=== PATIENT | male | born 1930 | race Caucasian/White ===

== ENCOUNTER 2017-05-11 13:07 | Outpatient (CLI) | payer MEDICARE ==
--- NOTE | 2017-05-11 16:19 | MRI ---
MRI OF THE PELVIS WITH AND WITHOUT IV CONTRAST 05/10/17 INDICATION: History of rectal cancer; initial staging exam. FINDINGS: There is an irregular intermediate to high T2 circumferential soft tissue mass involving the rectum o riginating at the high rectum, just distal to the rectosigmoid anastomosis on image 7 of series 3. Th e lesion then extends caudad 7.3 cm distally to terminate approximately 5.4 cm from the level of the anal verge. The tumor does appear to terminate prior to the level of the puborectalis. The lesion is circumferential with multifocal regions of disruption beyond the muscularis propria within the mesor ectal fat. One of the more prominent extensions into the mesorectal fat is seen on image 13 of series 3 and on image 12 of series 3. No pathologically enlarged perirectal, presacral internal iliac lymph nodes are present. There is postsurgical change of a total prostatectomy. There are a few mildly pr ominent inguinal lymph nodes bilaterally, largest seen on the left measuring up to 1.0 cm in size on image 29 of series 3. There is scattered degenerative change at the SI joints of both hips. No defini te bone marrow signal abnormality is seen involving the pelvis. IMPRESSION: 1. 7.3 cm circumferential rectal mass with T3 extension into the surrounding mesorectal fat. The shortest distance of the lesion to the mesorectal fascia is seen anteriorly within the upper rectum on image 12 of series 3 measuring 2 mm. 2. The distal extent of the tumor terminates approximately 5.4 cm from the level of the anal ly ge and approximately 3.8 cm from the level of the anal sphincter. There are multifocal regions of the lesion extending into the mesorectal fat, predominantly within the mid to upper rectum. 3. No abnormal perirectal or mesorectal lymph nodes are grossly evident. No overt extra mesorect al lymphadenopathy is evident. 4. Postsurgical changes of a prior prostatectomy. POS: TPC
== END 2017-05-11 13:08 | disposition home or self-care (01) ==
LOC: TBSIIMAG 13:07
PROVIDERS: ATTEND Radiology Radiation Oncology
DX: C20 Malignant neoplasm of rectum (principal); Z90.79 Acquired absence of other genital organ(s)
CPT/HCPCS: 72197

== ENCOUNTER 2017-05-14 08:30 | Outpatient (CLI) | payer MEDICARE ==
--- NOTE | 2017-05-16 12:26 | PET ---
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 Exam requested for initial staging. Rectal bleeding. Weight loss. TECHNIQUE: PET scanning with CT attenuation correction was performed from the shanthi of the brain through the proxi mal thighs following the intravenous administration of 15.7 mCi F18-FDG in the right antecubital siomara a. Imaging was performed after an uptake interval of 56 minutes. CORRELATION: MRI pelvis dated 05/11/17. FINDINGS: There is intense FDG localization in the region of the rectal mass with a SUV of 29. No zaria hypermetabolism is seen in the pelvis, inguinal regions, abdomen, chest, axilla, or neck. Focally increased nodular uptake is seen in the adrenal glands on either side with SUVs of 7.1 on the right and 3.7 on the left. No hypermetabolic pulmonary nodules, liver, or skeletal lesions are seen. The CT scan used for attenuation correction demonstrates no evidence of pleural effusions or ascites. 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 POS: NAUN
== END 2017-05-14 08:31 | disposition home or self-care (01) ==
LOC: PET 08:30
PROVIDERS: ATTEND Internal Medicine Hematology & Oncology
DX: C20 Malignant neoplasm of rectum (principal); C79.71 Secondary malignant neoplasm of right adrenal gland; C79.72 Secondary malignant neoplasm of left adrenal gland
CPT/HCPCS: 78815; A9552

== ENCOUNTER 2017-06-28 18:43 | Inpatient (IN) | payer MEDICARE ==
[2017-06-28] MEDS ORDERED: Ondansetron ODT 4 MG TAB SL PRN (22:43)
[2017-06-28] MEDS ORDERED: Acetaminophen 325 MG TAB PO PRN (22:43)
[2017-06-28] MEDS ORDERED: Ondansetron HCl/PF 4 MG/2 ML Vial IVP PRN (22:43)
[2017-06-28 23:05] VITALS: BMI 24.5
[2017-06-28] MEDS ORDERED: Sodium Chloride 0.9% 1,000 ML IV SCH (23:15)
--- NOTE | 2017-06-29 00:29 | HP ---
PRIMARY CARE PHYSICIAN: Joe Mchugh M.D. ONCOLOGIST: Neda Lubin M.D. CHIEF COMPLAINT: Rectal pain. HISTORY OF PRESENT ILLNESS: This is an 87-year-old male with a history of rectal cancer diagnosed ap proximately 3 months ago known prostate cancer who presents with a chief complaint of rectal pain. Steve villalpando has been receiving outpatient oncologic treatments which he states typically caused some pain, but not to this degree. The patient states he is currently on his third week of radiation and chemo therapy. The patient also states that he fell earlier today. REVIEW OF SYSTEMS: General: No fevers, no chills, no significant weight change in the last 2 weeks. Gastrointestinal: No nausea, no vomiting, no abdominal pain, rectal pain as per above described as previously sharp and burning. At the time of my evaluation, the patient states that it is currently resolved. He has had some associated bleeding as well. Genitourinary: Denies any dysuria, change in urinary frequency, coloration or quantity. HEENT: Denies any blurred vision, difficulty swallowing. Cardiovascular: Denies any chest pain, ch est pressure, left-sided arm numbness or tingling or diaphoresis. Respiratory: Denies any shortness of breath, dyspnea with exertion, cough or other recent upper respiratory infectious complaints. Mu sculoskeletal: Denies any new myalgias or arthralgias. He did have a fall earlier today. Denies an y loss of consciousness. Remainder of review of systems is otherwise negative. PAST MEDICAL HISTORY: As per HPI, inclusive of, 1. Prostate cancer. 2. Rectal cancer diagnosed 3 months ago, currently on week 3 of radiation and chemotherapy. 3. Status post CABG x4 vessel bypass approximately 20 years ago. HOME MEDICATIONS: Please see the EMR for full details. ALLERGIES: The patient denies any recent change in the last 2 weeks. FAMILY HISTORY: Negative for any known family history of rectal cancer, GI cancer, recurrent rectal pain. SOCIAL HISTORY: The patient denies any alcohol, tobacco, drug use. The patient endorses being full code at this point in time. PHYSICAL EXAMINATION: VITAL SIGNS: Blood pressure 124/43, pulse is 97, respirations 18, satting 98% on room air. GENERAL: The patient is awake, alert, conversant, lying in the hospital bed in no acute distress. R easonable historian, slightly hard of hearing. HEENT: Moist mucous membranes. Equal ocular motions are intact. Normocephalic, atraumatic. RESPIRATORY: Reasonable air movement. No wheezes, rales or rhonchi. Clear to auscultation otherwis e. CARDIOVASCULAR: S1, S2. No murmurs, rubs or gallops. Pulses 2+ bilateral upper extremity, no pitti ng pedal edema. ABDOMEN: Positive bowel sounds, soft, nontender to palpation. MUSCULOSKELETAL: Able to self-reposition in the bed without difficulty or assistance. GENITOURINARY: Rectal examination deferred at this point in time. IMAGING: CBC: WBC 16.2, hemoglobin 10.2, hematocrit 30.9, platelets 262, neutrophils 90%, bands 16% . PT 19.5, INR 1.6. CMP: Sodium 133, potassium 4.7, chloride 100, bicarbonate 21, BUN 56, creatini ne 2.34, glucose 158. Lactic acid 1.7, calcium 9.3, phosphorus 2.9, total bilirubin 0.9, direct bili rai 0.3, AST 31, ALT 16, alkaline phosphatase 96. BNP 128. TSH 1.7. UA significant for 100 mg pe r deciliter, small blood, small leukocyte esterase, 21-50 WBCs, 3+ urine bacteria. ASSESSMENT AND PLAN: An 87-year-old male with history of rectal cancer who presented with chief comp laint of rectal pain. Patient was also found to have a urinary tract infection currently. 1. Rectal pain. Symptomatic management, pain control as needed. The patient states this is current ly improved. 2. Concern for urinary tract infection along with leukocytosis and left shift on serologies. The pa reenant has been started on empiric ceftriaxone. Obtain a urine culture and followup. If patient has a fever, we would recommend obtaining blood cultures as well. Patient has history of straight cathin g, continue this as needed. 3. Concern for acute kidney injury. The patient has received several liters of IV fluid in the [facility] Department, we will continue with IV hydration and close monitoring of intake and output. 4. History of hypertension, continue home regimen as tolerated. 5. Admit to the Oncology Service. Patient is FULL CODE.
[2017-06-29] MEDS ORDERED: CEFTRIAXONE ROCEPHIN SLOW IVP SCH (04:00)
[2017-06-29 06:03] LABS: Band 38 % (5-11); Eosinophils 2 % (0-10); Hemoglobin 9.7 g/dL (14.0-18.0); Lymphocytes 4 % (21-51); MDiff Complete? YES; Mean Corpuscular Hemoglobin 33.6 pg (27.0-31.0); Mean Platelet Volume 5.9 fL (7.4-10.4); Monocytes 3 % (0-10); Neutrophil 53 % (42-75); PLT Morphology Comment Appears Adequate; Platelet Count 214 thou/uL (130-400); RBC Distribution Width 16.3 % (11.5-14.5); Red Blood Cell (RBC) Count 2.87 mill/uL (4.70-6.10); White Blood Cell (WBC) Count 12.3 thou/uL (4.8-10.8)
[2017-06-29 06:30] LABS: Calcium 8.5 mg/dL (7.8-10.44); Chloride 108 mmol/L (98-107); Phosphorus 3.6 mg/dL (2.3-4.7); Potassium 4.4 mmol/L (3.5-5.1); Sodium 134 mmol/L (136-145)
[2017-06-29 06:45] LABS: Albumin 2.4 g/dL (3.4-4.8)
[2017-06-29 06:47] LABS: Glucose 106 mg/dL (83-110)
[2017-06-29 06:49] LABS: Anion Gap 20 mmol/L (10-20); Carbon Dioxide 12 mmol/L (23-31)
[2017-06-29 06:51] LABS: BUN (Urea Nitrogen) 55 mg/dL (8.4-25.7); BUN/Creatinine Ratio 26.96; Calc. Creatinine Clearance 28 mL/min (70-130); Estimated GFR-MDRD 31
[2017-06-29] MEDS: Heparin 5,000 UNITS/ML VIAL SC SCH ×3 (08:25→20:46)
[2017-06-29] MEDS: Metoprolol Tartrate 25 MG TAB PO SCH ×2 (08:25→20:47)
[2017-06-29] MEDS: cefTRIAXone\\ROCEPHIN 1 GM in Syringe 10 ML SLOW IVP SCH (08:37)
[2017-06-29] MEDS: Amlodipine 10 MG TAB PO SCH (08:38)
[2017-06-29] MEDS ORDERED: FLU VACC TS2017-18 (>65YR) 0.5 ML SYRINGE IM ONE (09:00)
--- NOTE | 2017-06-29 17:31 | PDOC.PN ---
- Subjective Encounter Start Date: 06/29/17 Encounter Start Time: 17:25 Subjective: f/u for rectal pain and UTI in context of rectal adenocarcinoma and -: intermittent bladder catheterizations. Currently on Rocephin. Overall feels -: better. - Objective Resuscitation Status: Resuscitation Status FULL:Full Resuscitation MAR Reviewed: Yes Vital Signs & Weight: Vital Signs (12 hours) Temp Pulse Resp BP Pulse Ox 06/29/17 15:30 98.4 F 87 18 136/56 L 98 06/29/17 12:00 97.9 F 77 20 147/67 H 99 06/29/17 08:38 78 06/29/17 08:00 97.4 F L 78 18 06/29/17 07:00 97.4 F L 78 18 127/82 99 Weight Weight 166 lb 0.129 oz I&O: 06/28/17 06/29/17 06/30/17 06:59 06:59 06:59 Intake Total 60 300 Output Total 1975 Balance 60 -1675 Result Diagrams: 06/29/17 05:35 06/29/17 05:35 Additional Labs: Microbiology 06/28/17 15:25 Stool - Pending Stool Occult Blood (GUILLERMO) - Final 06/28/17 16:38 Urine Straight Catheter Urine Culture - Preliminary Presumptive Escherichia coli 06/28/17 15:35 Venous blood - Right Arm Blood Culture - Preliminary Specimen has been received and culture in progress. No Growth to date. Laboratory Tests 06/27/17 06/28/17 08:00 15:35 Creatinine 1.81 H 2.34 H Radiology Reviewed by me: Yes (PCXR - negative) Phys Exam - Physical Examination Constitutional: NAD smiling, alert, responsive HEENT: PERRLA, oral pharynx no lesions Neck: no JVD, supple Respiratory: no wheezing, clear to auscultation bilateral Cardiovascular: RRR Gastrointestinal: soft, non-tender, no distention, positive bowel sounds Musculoskeletal: no edema, pulses present Neurological: normal sensation, moves all 4 limbs Skin: normal turgor, cap refill <2 seconds Dx/Plan (1) E. coli UTI (urinary tract infection) Code(s): N39.0 - URINARY TRACT INFECTION, SITE NOT SPECIFIED; B96.20 - UNSP ESCHERICHIA COLI THE CAUSE OF DISEASES CLASSD ELSWHR Status: Acute Comment: Continue Rocephin 1gm IV q24h, await final cx sensitivities (2) Rectal pain Code(s): K62.89 - OTHER SPECIFIED DISEASES OF ANUS AND RECTUM Status: Acute Comment: Morphine Sulfate 2mg IV q4h prn, Gabapentin 300mg TID (3) Rectal adenocarcinoma Code(s): C20 - MALIGNANT NEOPLASM OF RECTUM Status: Chronic (4) NAKUL (acute kidney injury) Code(s): N17.9 - ACUTE KIDNEY FAILURE, UNSPECIFIED Status: Acute Comment: Improved, avoid nephrotoxic meds and contrast media, NS at 75ml/h (5) CKD (chronic kidney disease), stage III Code(s): N18.3 - CHRONIC KIDNEY DISEASE, STAGE 3 (MODERATE) Status: Acute (6) Macrocytic anemia Code(s): D53.9 - NUTRITIONAL ANEMIA, UNSPECIFIED Status: Chronic Comment: Stable, no evidence of active blood loss, repeat CBC in am - Plan continue antibiotics, child protective services social worker, out of bed/ambulate, DVT proph w/SCDs Stable overall -: Continue Rocephin 1gm IV q24h -: Continue pain control with Morphine Sulfate and Gabapentin -: IV NS 75ml/h -: AM lab: BMP, CBC * Code Status: DNR confirmed
[2017-06-29] MEDS ORDERED: CAPECITABINE 500 MG PO SCH (17:45)
[2017-06-29] MEDS: Sodium Chloride 0.9% 1,000 ML IV SCH (19:44)
[2017-06-29] MEDS: Gabapentin 300 MG CAP PO SCH (20:47)
--- NOTE | 2017-06-30 01:57 | CON ---
DATE OF CONSULTATION: 06/29/2017 REASON FOR CONSULTATION: Rectal adenocarcinoma. HISTORY OF PRESENT ILLNESS: Mr. Frank is an 87-year-old gentleman who is undergoing treatment with c hemoradiation for stage IV rectal adenocarcinoma. He is getting radiation with Xeloda. He presented to the emergency room yesterday with difficulty urinating, rectal pain and falls. He was noted to h ave a urinary tract infection. Culture is positive for E. coli. He also had elevated creatinine on admission likely secondary to dehydration. He has received IV antibiotics and fluids. The patient h as undergone approximately 19 of the 28 days of radiation. There have been some social issues. Arpita mahmood was living with his daughter, but then moved back home again where he has been marginally caring for himself in fact Adult Protective Services has seen the patient in his setting and he is involved in his case. Currently, the patient denies any discomfort, no abdominal pain, chest pain or shortnes s of breath. History was obtained from the patient and his multiple daughters at bedside. Patient h as a history of self-catheterization over the past year for urinary retention. PAST MEDICAL HISTORY: 1. 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 2. History of prostate cancer. 3. High blood pressure. 4. Coronary artery disease. 5. High cholesterol. 6. History of stroke. 7. History of liver disease. PAST SURGICAL HISTORY: 1. Prostatectomy. 2. CABG. ALLERGIES: No known drug allergies. HOME MEDICATIONS: 1. Amlodipine 10 mg daily. 2. Benazepril 20 mg daily. 3. Gabapentin 300 mg t.i.d. 4. Hydrochlorothiazide 20 mg daily. 5. Metoprolol tartrate 25 mg 1/2 tab daily. 6. Xeloda 500 mg 3 tabs b.i.d. with radiation. FAMILY HISTORY: Father had prostate cancer. Brother has a pancreatic cancer. SOCIAL HISTORY: , has 7 children. No alcohol, tobacco or illicit drug use. REVIEW OF SYSTEMS: Negative except for noted in HPI. PHYSICAL EXAMINATION: VITAL SIGNS: Temperature is 97.9, pulse is 77, respiratory rate 20, BP is 147/67. He is 99% on room air. GENERAL: This is a well-developed, well-nourished male in no acute distress. HEENT: Normocephalic, atraumatic. Pupils are equal and reactive to light. NECK: Supple. CARDIOVASCULAR: Regular rate and rhythm. LUNGS: Clear. ABDOMEN: Soft, nontender, bowel sounds are positive. EXTREMITIES: There is no clubbing, cyanosis or edema. SKIN: There is no rash. Perineum, no breakdown from radiation. HEMATOLOGICAL: There is no petechia or purpura. NEUROLOGIC: The patient is nonfocal. PSYCHIATRIC: He is alert and oriented and appropriate. PERTINENT LABORATORY AND X-RAYS: Current WBCs are 12.3, hemoglobin 9.7, hematocrit 29.2, platelet co unt 214,000, 53% neutrophils, 38% bands, 4% lymphocytes. PT is 19.5, INR is 1.6, PTT is 36.2. Sodiu m is 134, potassium 4.4, chloride 108, CO2 is 12, BUN is 55, creatinine 2.04. Lactic acid is 1.7, ca lcium is 8.5, phosphorus 3.6, total bilirubin is 0.9, AST is 31, ALT is 16, alkaline phosphatase is 9 6. Serum total protein is 6.5, albumin 3.1, globulin 3.4. Urine showed 3+ bacteria, positive for E. coli. IMPRESSION: 1. Stage IV rectal adenocarcinoma, on chemo and radiation. 2. Escherichia coli urinary tract infection. 3. Acute kidney injury likely secondary to dehydration. DISCUSSION: The patient is being treated for his UTI with IV antibiotics. He has received IV fluids with improvement in his creatinine. Discussion with the family and the patient, he would like to st op chemoradiation at this time and have a chance to recover. He would like to go to a rehab facility to see if they can increase his strength. I will put in a watch case polisher consult for rehab evaluation and will also put in palliative care consultation for advanced directives. The patient may transiti on to hospice after rehabilitation stay or he can resume chemoradiation at that time. This was all d iscussed with both the patient and his family. They are in agreement with the plan. Thank you for the consult.
[2017-06-30 06:05] LABS: Anion Gap 14 mmol/L (10-20); BUN (Urea Nitrogen) 40 mg/dL (8.4-25.7); Calc. Creatinine Clearance 36 mL/min (70-130); Calcium 8.4 mg/dL (7.8-10.44); Carbon Dioxide 17 mmol/L (23-31); Chloride 108 mmol/L (98-107); Estimated GFR-MDRD 43; Glucose 97 mg/dL (83-110); Potassium 3.6 mmol/L (3.5-5.1); Sodium 135 mmol/L (136-145)
[2017-06-30 06:33] LABS: Hemoglobin 8.8 g/dL (14.0-18.0); Mean Corpuscular HGB CONC 32.5 g/dL (32.0-36.0); Mean Corpuscular Hemoglobin 32.2 pg (27.0-31.0); Mean Corpuscular Volume 98.9 fl (80.0-94.0); Platelet Count 217 thou/uL (130-400); RBC Distribution Width 16.2 % (11.5-14.5); Red Blood Cell (RBC) Count 2.73 mill/uL (4.70-6.10); White Blood Cell (WBC) Count 4.7 thou/uL (4.8-10.8)
[2017-06-30 07:58] LABS: Band 32 % (5-11); Burr Cells MODERATE= 6-15 cells (100X) (0-1/hpf); Eosinophils 3 % (0-10); Lymphocytes 5 % (21-51); MDiff Complete? YES; Monocytes 11 % (0-10); Neutrophil 49 % (42-75); PLT Morphology Comment Appears Adequate; Polychromasia SLIGHT = 2-3 cells (100X) (0-2/hpf)
[2017-06-30] MEDS: Sodium Chloride 0.9% 1,000 ML IV SCH ×2 (09:19→22:44)
[2017-06-30] MEDS: Heparin 5,000 UNITS/ML VIAL SC SCH ×3 (09:19→20:42)
[2017-06-30] MEDS: Amlodipine 10 MG TAB PO SCH (09:20)
[2017-06-30] MEDS: Metoprolol Tartrate 25 MG TAB PO SCH ×2 (09:21→20:42)
[2017-06-30] MEDS: Gabapentin 300 MG CAP PO SCH ×3 (09:21→20:42)
[2017-06-30] MEDS: cefTRIAXone\\ROCEPHIN 1 GM in Syringe 10 ML SLOW IVP SCH (09:46)
--- NOTE | 2017-06-30 10:22 | PDOC.PN ---
- Subjective Encounter Start Date: 06/30/17 Encounter Start Time: 10:15 Subjective: f/u for UTI and rectal pain in context of rectal adenocarcinoma. Ucx -: negative currently but pt tx empirically with Rocephin 1gm daily. -: Overall feels better. - Objective Resuscitation Status: Resuscitation Status DNR:Do Not Resuscitate MAR Reviewed: Yes Vital Signs & Weight: Vital Signs (12 hours) Temp Pulse Resp BP Pulse Ox 06/30/17 09:20 64 06/30/17 08:15 98.9 F 64 12 12 L 06/30/17 07:14 98.9 F 64 12 124/58 L 96 06/30/17 03:40 97.7 F 65 16 121/56 L 92 L 06/29/17 23:33 97.7 F 77 16 141/65 H 98 Weight Weight 166 lb 0.129 oz I&O: 06/29/17 06/30/17 07/01/17 06:59 06:59 06:59 Intake Total 60 300 240 Output Total 2975 350 Balance 60 -2675 -110 Result Diagrams: 06/30/17 05:21 06/30/17 05:21 Additional Labs: Microbiology 06/28/17 15:25 Stool - Pending Stool Occult Blood (GUILLERMO) - Final 06/29/17 08:00 Urine voided Urine Culture - Preliminary NO GROWTH AT 24 HOURS 06/28/17 16:38 Urine Straight Catheter Urine Culture - Preliminary Presumptive Escherichia coli 06/28/17 15:35 Venous blood - Right Arm Blood Culture - Preliminary Specimen has been received and culture in progress. No Growth to date. Laboratory Tests 06/27/17 06/28/17 06/29/17 08:00 15:35 05:35 WBC Hgb Band Neuts % (Manual) Sodium 134 L Carbon Dioxide 12 L Creatinine 1.81 H 2.34 H 2.04 H 06/29/17 06/30/17 05:35 05:21 WBC 12.3 H Hgb 9.7 L Band Neuts % (Manual) 38 H 32 H Sodium Carbon Dioxide Creatinine Phys Exam - Physical Examination Constitutional: NAD HEENT: PERRLA, oral pharynx no lesions Neck: no JVD, supple Respiratory: no wheezing, clear to auscultation bilateral Cardiovascular: RRR Gastrointestinal: soft, non-tender, no distention, positive bowel sounds Musculoskeletal: no edema, pulses present Neurological: normal sensation, moves all 4 limbs Skin: normal turgor, cap refill <2 seconds Dx/Plan (1) E. coli UTI (urinary tract infection) Code(s): N39.0 - URINARY TRACT INFECTION, SITE NOT SPECIFIED; B96.20 - UNSP ESCHERICHIA COLI THE CAUSE OF DISEASES CLASSD ELSWHR Status: Suspected Comment: Continue Rocephin 1gm IV q24h another 24h then convert to po abx (2) Rectal pain Code(s): K62.89 - OTHER SPECIFIED DISEASES OF ANUS AND RECTUM Status: Acute Comment: Morphine Sulfate 2mg IV q4h prn, Gabapentin 300mg TID (3) Rectal adenocarcinoma Code(s): C20 - MALIGNANT NEOPLASM OF RECTUM Status: Chronic Comment: Holding chemo/xrt currently, awaiting clinical stabilization and increased strength and stamina, Rad/Med onc following (4) NAKUL (acute kidney injury) Code(s): N17.9 - ACUTE KIDNEY FAILURE, UNSPECIFIED Status: Acute Comment: Improved, avoid nephrotoxic meds and contrast media, NS at 75ml/h (5) CKD (chronic kidney disease), stage III Code(s): N18.3 - CHRONIC KIDNEY DISEASE, STAGE 3 (MODERATE) Status: Acute (6) Macrocytic anemia Code(s): D53.9 - NUTRITIONAL ANEMIA, UNSPECIFIED Status: Chronic Comment: Stable, no evidence of active blood loss, repeat CBC in am - Plan plan discussed w/ family, continue antibiotics, PT/OT, older adult social work specialist, out of bed/ambulate, DVT proph w/SCDs Stable overall -: PT for mobilization -: Palliative care screening -: Continue Rocephin another 24h then d/c -: Continue IVF's another 24h then d/c * AM lab: BMP, CBC * Await for rehab approval at [facility]
[2017-07-01] MEDS: Acetaminophen 325 MG TAB PO PRN (00:38)
[2017-07-01 06:20] LABS: Anion Gap 12 mmol/L (10-20); BUN (Urea Nitrogen) 33 mg/dL (8.4-25.7); Calc. Creatinine Clearance 38 mL/min (70-130); Calcium 8.2 mg/dL (7.8-10.44); Carbon Dioxide 19 mmol/L (23-31); Chloride 110 mmol/L (98-107); Estimated GFR-MDRD 45; Glucose 97 mg/dL (83-110); Potassium 3.6 mmol/L (3.5-5.1); Sodium 137 mmol/L (136-145)
[2017-07-01 06:39] LABS: Band 14 % (5-11); Eosinophils 3 % (0-10); Hemoglobin 8.7 g/dL (14.0-18.0); Lymphocytes 7 % (21-51); MDiff Complete? YES; Mean Corpuscular HGB CONC 32.2 g/dL (32.0-36.0); Mean Corpuscular Hemoglobin 31.7 pg (27.0-31.0); Mean Corpuscular Volume 98.5 fl (80.0-94.0); Mean Platelet Volume 5.9 fL (7.4-10.4); Monocytes 15 % (0-10); Myelocyte 1 % (0-0); Neutrophil 60 % (42-75); Platelet Count 204 thou/uL (130-400); RBC Distribution Width 16.1 % (11.5-14.5); Red Blood Cell (RBC) Count 2.73 mill/uL (4.70-6.10); White Blood Cell (WBC) Count 3.5 thou/uL (4.8-10.8)
[2017-07-01] MEDS: Amlodipine 10 MG TAB PO SCH (09:05)
[2017-07-01] MEDS: Gabapentin 300 MG CAP PO SCH ×3 (09:08→20:49)
[2017-07-01] MEDS: Heparin 5,000 UNITS/ML VIAL SC SCH ×3 (09:09→20:49)
[2017-07-01] MEDS: Metoprolol Tartrate 25 MG TAB PO SCH ×2 (09:12→20:49)
[2017-07-01] MEDS: Sodium Chloride 0.9% 1,000 ML IV SCH (09:15)
[2017-07-01] MEDS: cefTRIAXone\\ROCEPHIN 1 GM in Syringe 10 ML SLOW IVP SCH (09:25)
--- NOTE | 2017-07-01 11:34 | PDOC.PN ---
- Subjective Encounter Start Date: 07/01/17 Encounter Start Time: 11:30 Subjective: f/u suspected UTI and rectal pain in context of rectal adenocarcinoma tx -: with Rocephin. Overall feels much better. Ucx negative at 48h. -: Awaiting approval for inpt rehab. - Objective Resuscitation Status: Resuscitation Status DNR:Do Not Resuscitate MAR Reviewed: Yes Vital Signs & Weight: Vital Signs (12 hours) Temp Pulse Resp BP BP BP Pulse Ox 07/01/17 11:23 98.1 F 48 L 20 150/66 H 95 07/01/17 09:12 130/58 L 07/01/17 09:05 50 L 130/58 L 07/01/17 08:00 97.8 F 50 L 20 130/58 L 97 07/01/17 04:00 98.5 F 48 L 16 124/60 96 07/01/17 03:24 98.1 F 07/01/17 00:11 99.1 F 53 L 18 126/59 L 96 Weight Admit Weight 166 lb 0.128 oz Weight 166 lb 0.128 oz I&O: 06/30/17 07/01/17 07/02/17 06:59 06:59 06:59 Intake Total 300 1490 Output Total 8984 3195 275 Balance -2675 -985 -275 Result Diagrams: 07/01/17 05:26 07/01/17 05:26 Additional Labs: Microbiology 06/29/17 08:00 Urine voided Urine Culture - Final NO GROWTH AT 48 HOURS 06/28/17 15:25 Stool - Pending Stool Occult Blood (GUILLERMO) - Final 06/29/17 08:00 Urine voided Urine Culture - Preliminary NO GROWTH AT 24 HOURS 06/28/17 16:38 Urine Straight Catheter Urine Culture - Preliminary Presumptive Escherichia coli 06/28/17 15:35 Venous blood - Right Arm Blood Culture - Preliminary Specimen has been received and culture in progress. No Growth to date. Laboratory Tests 06/27/17 06/28/17 06/29/17 08:00 15:35 05:35 WBC Hgb Band Neuts % (Manual) Sodium 134 L Carbon Dioxide 12 L Creatinine 1.81 H 2.34 H 2.04 H 06/29/17 06/30/17 05:35 05:21 WBC 12.3 H Hgb 9.7 L Band Neuts % (Manual) 38 H 32 H Sodium Carbon Dioxide Creatinine Phys Exam - Physical Examination Constitutional: NAD HEENT: PERRLA, oral pharynx no lesions Neck: no JVD, supple Respiratory: no wheezing Cardiovascular: RRR Gastrointestinal: soft, non-tender, no distention, positive bowel sounds Musculoskeletal: no edema, pulses present Neurological: normal sensation, moves all 4 limbs Skin: normal turgor, cap refill <2 seconds Dx/Plan (1) E. coli UTI (urinary tract infection) Code(s): N39.0 - URINARY TRACT INFECTION, SITE NOT SPECIFIED; B96.20 - UNSP ESCHERICHIA COLI THE CAUSE OF DISEASES CLASSD ELSWHR Status: Suspected Comment: d/c Rocephin, start Levaquin 250mg daily (2) Rectal pain Code(s): K62.89 - OTHER SPECIFIED DISEASES OF ANUS AND RECTUM Status: Acute Comment: Morphine Sulfate 2mg IV q4h prn, Gabapentin 300mg TID (3) Rectal adenocarcinoma Code(s): C20 - MALIGNANT NEOPLASM OF RECTUM Status: Chronic Comment: Holding chemo/xrt currently, awaiting clinical stabilization and increased strength and stamina, Rad/Med onc following (4) NAKUL (acute kidney injury) Code(s): N17.9 - ACUTE KIDNEY FAILURE, UNSPECIFIED Status: Acute Comment: Improved, avoid nephrotoxic meds, saline lock IVF's (5) CKD (chronic kidney disease), stage III Code(s): N18.3 - CHRONIC KIDNEY DISEASE, STAGE 3 (MODERATE) Status: Chronic (6) Macrocytic anemia Code(s): D53.9 - NUTRITIONAL ANEMIA, UNSPECIFIED Status: Chronic Comment: Stable, no evidence of active blood loss, repeat CBC in am - Plan continue antibiotics, PT/OT, psych social worker, out of bed/ambulate, DVT proph w/ SCDs Stable overall -: D/C Rocephin -: Start Levaquin 250mg po daily -: Saline lock IVF's -: OOB/ambulate with PT * Awaiting approval for inpt rehab * AM lab: BMP
--- NOTE | 2017-07-02 07:58 | PDOC.PN ---
- Subjective Encounter Start Date: 07/02/17 Encounter Start Time: 08:00 Subjective: nsg notes rev, amarilis ovn -: pt no new c/o, sleeping well, was able to stand with PT yday -: rpts poor appetite (longstanding) no nausea, able to daryl dietary supplement pain controlled - Objective Resuscitation Status: Resuscitation Status DNR:Do Not Resuscitate MAR Reviewed: Yes Vital Signs & Weight: Vital Signs (12 hours) Temp Pulse Resp BP BP Pulse Ox 07/02/17 04:00 97.4 F L 67 18 135/63 97 07/02/17 00:00 97.9 F 63 20 146/80 H 95 07/01/17 20:00 97.9 F 67 18 158/72 H 95 Weight Admit Weight 166 lb 0.128 oz Weight 166 lb 0.128 oz I&O: 07/01/17 07/02/17 07/03/17 06:59 06:59 06:59 Intake Total 1490 1450 Output Total 2475 2352 Balance -985 -902 Result Diagrams: 07/01/17 05:26 07/01/17 05:26 Phys Exam - Physical Examination Constitutional: NAD lying in hospital bed, asleep but easily arousable and conversant HEENT: PERRLA, moist MMs, oral pharynx no lesions Neck: no JVD Respiratory: no wheezing, no rales, no rhonchi, clear to auscultation bilateral limited anterior examination Cardiovascular: RRR, no significant murmur, no rub pules 2+ b/l UE, no pitting pedal edema Gastrointestinal: soft, non-tender, no distention, positive bowel sounds Psychiatric: normal affect, A&O x 3 Dx/Plan (1) NAKUL (acute kidney injury) Code(s): N17.9 - ACUTE KIDNEY FAILURE, UNSPECIFIED Status: Acute Comment: Improved, avoid nephrotoxic meds, monitor I/O (2) Rectal pain Code(s): K62.89 - OTHER SPECIFIED DISEASES OF ANUS AND RECTUM Status: Acute Comment: Gabapentin 300mg TID improved control on oral pain regimen, continue to monitor (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 Stable for D/C. -: Ok for no PIV at this point in time. * . Review of Systems - Medications/Allergies Allergies/Adverse Reactions: Allergies Allergy/AdvReac Type Severity Reaction Status Date / Time No Known Allergies Allergy Verified 06/28/17 23:08 Medications: Current Medications Acetaminophen (Tylenol) 650 mg PO Q6H PRN PRN Reason: Headache/Fever or Pain Last Admin: 07/01/17 00:38 Dose: 650 mg Amlodipine Besylate (Norvasc) 10 mg PO DAILY [facility] Last Admin: 07/02/17 09:06 Dose: 10 mg Benazepril HCl (Lotensin) 20 mg PO DAILY [facility] Last Admin: 07/02/17 09:06 Dose: 20 mg Gabapentin (Neurontin) 300 mg PO TID [facility] Last Admin: 07/02/17 15:04 Dose: 300 mg Heparin Sodium (Porcine) (Heparin) 5,000 units SC TID [facility] Last Admin: 07/02/17 15:04 Dose: 5,000 units Levofloxacin (Levaquin) 250 mg PO 0600 [facility] Last Admin: 07/02/17 06:09 Dose: 250 mg Metoprolol Tartrate (Lopressor) 25 mg PO BID [facility] Last Admin: 07/02/17 09:07 Dose: 25 mg Morphine Sulfate (Morphine) 2 mg SLOW IVP Q4H PRN PRN Reason: Moderate to Severe Pain (6-10) Capecitabine [ (Capecitabine] 500 Mg) 0 each PO ASDIR [facility] Sodium Chloride (Flush - Normal Saline) 10 ml IVF Q12HR [facility] Last Admin: 07/02/17 09:07 Dose: 10 ml Sodium Chloride (Flush - Normal Saline) 10 ml IVF PRN PRN PRN Reason: Saline Flush
[2017-07-02] MEDS: Amlodipine 10 MG TAB PO SCH (09:06)
[2017-07-02] MEDS: Metoprolol Tartrate 25 MG TAB PO SCH ×2 (09:07→22:11)
[2017-07-02] MEDS: Heparin 5,000 UNITS/ML VIAL SC SCH ×3 (09:07→22:11)
[2017-07-02] MEDS: Gabapentin 300 MG CAP PO SCH ×3 (09:07→22:11)
[2017-07-02] MEDS: Loperamide HCl 2 MG CAP PO PRN (22:11)
[2017-07-03] MEDS: Loperamide HCl 2 MG CAP PO PRN ×4 (00:29→20:29)
[2017-07-03 06:01] LABS: #Eosinphils 0.3 thou/uL (0.0-0.7); #Lymphocytes 0.7 thou/uL (1.20-3.40); #Monocytes 0.5 thou/uL (0.11-0.59); #Neutrophils 4.1 thou/uL (1.40-6.50); %Basophils 0.2 % (0.0-1.0); %Eosinophils 5.8 % (0.0-10.0); %Lymphocytes 11.7 % (21.0-51.0); %Monocytes 8.5 % (0.0-10.0); %Neutrophils 73.8 % (42.0-75.0); Hemoglobin 9.4 g/dL (14.0-18.0); Mean Corpuscular HGB CONC 32.7 g/dL (32.0-36.0); Mean Corpuscular Hemoglobin 32.2 pg (27.0-31.0); Mean Corpuscular Volume 98.4 fl (80.0-94.0); Mean Platelet Volume 5.6 fL (7.4-10.4); Platelet Count 290 thou/uL (130-400); RBC Distribution Width 16.5 % (11.5-14.5); Red Blood Cell (RBC) Count 2.92 mill/uL (4.70-6.10); White Blood Cell (WBC) Count 5.5 thou/uL (4.8-10.8)
[2017-07-03] MEDS: Amlodipine 10 MG TAB PO SCH (08:37)
[2017-07-03] MEDS: Metoprolol Tartrate 25 MG TAB PO SCH ×2 (08:38→20:29)
[2017-07-03] MEDS: Gabapentin 300 MG CAP PO SCH ×3 (08:38→20:29)
[2017-07-03] MEDS: Heparin 5,000 UNITS/ML VIAL SC SCH ×3 (08:39→20:29)
[2017-07-03] MEDS: Acetaminophen 325 MG TAB PO PRN (12:51)
[2017-07-03] MEDS ORDERED: oxyCODONE/Acetaminophen 5 mg/325 mg Tablet PO PRN (14:15)
--- NOTE | 2017-07-03 14:23 | PDOC.PN ---
- Subjective Encounter Start Date: 07/03/17 Encounter Start Time: 14:16 Subjective: nsg notes rev, amarilis ovn, has some rectal pain -: no other c/o @ this time - Objective Resuscitation Status: Resuscitation Status DNR:Do Not Resuscitate Vital Signs & Weight: Vital Signs (12 hours) Temp Pulse Resp BP BP Pulse Ox 07/03/17 12:00 97.6 F 59 L 16 128/58 L 100 07/03/17 08:38 155/50 H 07/03/17 08:37 77 07/03/17 08:00 98.1 F 77 16 155/80 H 100 07/03/17 03:46 98.5 F 71 18 134/63 96 Weight Admit Weight 166 lb 0.128 oz Weight 166 lb 0.128 oz I&O: 07/02/17 07/03/17 07/04/17 06:59 06:59 06:59 Intake Total 1450 1185 Output Total 2352 2350 100 Balance -902 -1165 -100 Result Diagrams: 07/03/17 05:49 07/01/17 05:26 Phys Exam - Physical Examination Constitutional: NAD HEENT: PERRLA, moist MMs Neck: supple Respiratory: no wheezing, no rales, no rhonchi, clear to auscultation bilateral Cardiovascular: RRR, no significant murmur, no rub Gastrointestinal: soft, non-tender, no distention, positive bowel sounds Musculoskeletal: no edema, pulses present Psychiatric: normal affect, A&O x 3 Dx/Plan (1) NAKUL (acute kidney injury) Code(s): N17.9 - ACUTE KIDNEY FAILURE, UNSPECIFIED Status: Acute Comment: Improved, avoid nephrotoxic meds, monitor I/O (2) Rectal pain Code(s): K62.89 - OTHER SPECIFIED DISEASES OF ANUS AND RECTUM Status: Acute Comment: Gabapentin 300mg TID added tramadol 25mg PO prn and norco 1 tab PO prn for additional pain ctrl, continue to monitor (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 coli UTI (urinary tract infection) Code(s): N39.0 - URINARY TRACT INFECTION, SITE NOT SPECIFIED; B96.20 - UNSP ESCHERICHIA COLI THE CAUSE OF DISEASES CLASSD ELSWHR Status: Suspected Comment: s/p 3 days Rocephin, start Levaquin 250mg daily for total 7 day course (complicated UTI) - Plan diet: as tolerated activity: with PT/OT awaiting insurance approval of inpt rehab Review of Systems - Medications/Allergies Allergies/Adverse Reactions: Allergies Allergy/AdvReac Type Severity Reaction Status Date / Time No Known Allergies Allergy Verified 06/28/17 23:08 Medications: Current Medications Acetaminophen (Tylenol) 650 mg PO Q6H PRN PRN Reason: Headache/Fever or Pain Last Admin: 07/03/17 12:51 Dose: 650 mg Amlodipine Besylate (Norvasc) 10 mg PO DAILY [facility] Last Admin: 07/03/17 08:37 Dose: 10 mg Benazepril HCl (Lotensin) 20 mg PO DAILY [facility] Last Admin: 07/03/17 08:38 Dose: 20 mg Gabapentin (Neurontin) 300 mg PO TID [facility] Last Admin: 07/03/17 08:38 Dose: 300 mg Heparin Sodium (Porcine) (Heparin) 5,000 units SC TID [facility] Last Admin: 07/03/17 08:39 Dose: 5,000 units Levofloxacin (Levaquin) 250 mg PO 0600 [facility] Last Admin: 07/03/17 05:44 Dose: 250 mg Loperamide HCl (Imodium) 2 mg PO PRN PRN PRN Reason: Diarrhea/Loose Stools Stop: 07/03/17 21:08 Last Admin: 07/03/17 08:39 Dose: 2 mg Metoprolol Tartrate (Lopressor) 25 mg PO BID [facility] Last Admin: 07/03/17 08:38 Dose: 25 mg Morphine Sulfate (Morphine) 2 mg SLOW IVP Q4H PRN PRN Reason: Moderate to Severe Pain (6-10) Oxycodone/Acetaminophen (Percocet 5/325) 1 tab PO Q4H PRN PRN Reason: Severe Pain (7-10) Capecitabine [ (Capecitabine] 500 Mg) 0 each PO ASDIR [facility] Sodium Chloride (Flush - Normal Saline) 10 ml IVF Q12HR [facility] Last Admin: 07/03/17 08:49 Dose: Not Given Sodium Chloride (Flush - Normal Saline) 10 ml IVF PRN PRN PRN Reason: Saline Flush Tramadol HCl (Ultram) 25 mg PO Q4H PRN PRN Reason: Moderate Pain (4-6)
[2017-07-03] MEDS: traMADol HCl 50 MG TAB PO PRN (14:38)
[2017-07-04] MEDS: Metoprolol Tartrate 25 MG TAB PO SCH ×2 (08:29→21:13)
[2017-07-04] MEDS: Amlodipine 10 MG TAB PO SCH (08:29)
[2017-07-04] MEDS: Gabapentin 300 MG CAP PO SCH ×3 (08:30→21:13)
[2017-07-04] MEDS: Heparin 5,000 UNITS/ML VIAL SC SCH ×3 (08:31→21:13)
--- NOTE | 2017-07-04 08:37 | PQF ---
CLINICAL DOCUMENTATION IMPROVEMENT CLARIFICATION FORM: ICD-10 Updated PLEASE DO AN ADDENDUM TO THE PROGRESS NOTE WITH ANY DOCUMENTATION UPDATES OR ADDITIONS AND CARRY THROUGH TO DC SUMMARY. THANK YOU. DATE: 07/04 ATTN: DR. MEDLEY Please exercise your independent, professional judgment in responding to the clarification form. Clinical indicators are provided on the bottom of this form for your review Please check appropriate box(s): [ x ] UTI (E COLI) please specify if due to or related to (as applicable): [ x ] Self-catheterization [ ] Unable to determine etiology [ ] Contaminated urine specimen without UTI [ ] Other diagnosis [ ] Unable to determine For continuity of documentation, please document condition throughout progress notes and discharge summary. Thank You. CLINICAL INDICATORS - SIGNS / SYMPTOMS / LABS ER NURSING DOCUMENTATION 06/28: PATIENT NORMALLY STRAIGHT CATHS AT HOME PHYSICIAN H&P DOCUMENTATION 06/28: ASSESSMENT/PLAN: 2. CONCERN FOR UTI. ...PATIENT HAS HISTORY OF STRAIGHT CATHING, CONTINUE THIS NEEDED. PHYSICIAN PN 06/29: SUBJECTIVE: UTI IN CONTEXT OF RECTAL ADENOCARCINOMA & INTERMITTENT BLADDER CATHETERIZATIONS PHYSICIAN PN 06/30 - : E COLI UTI, SUSPECTED URINALYSIS: SMALL BLOOD, SMALL LEUKOCYTE ESTERASE, WBC 21-50, 3+ BACTERIA RISK FACTORS: HISTORY OF SELF CATHETERIZATIONS HISTORY URINARY RETENTION RECTAL ADENOCARCINOMA ADVANCED AGE (87) TREATMENT: IV ANTIBIOTICS (ROCEPHIN 06/28 - ) PO ANTIBIOTIC (LEVAQUIN 07/02 - PRESENT) IVF (NS 06/28 - ) THANK YOU! Su (This form is maintained as a part of the permanent medical record) 2014 [employer] All Rights Reserved Su Mejia RN, [email or web address] Office: [phone] [facility]PITALCaitlin
--- NOTE | 2017-07-04 08:55 | PDOC.PN ---
- Subjective Encounter Start Date: 07/04/17 Encounter Start Time: 08:54 Subjective: nsg notes rev, amarilis ovn, no new c/o, pain ctrl improved -: pt still has poor appetite, no change from before, slept intermittently ovn -: which is no change from prior. has been working with PT - Objective Resuscitation Status: Resuscitation Status DNR:Do Not Resuscitate Vital Signs & Weight: Vital Signs (12 hours) Temp Pulse Resp BP BP Pulse Ox 07/04/17 08:40 155/80 H 07/04/17 08:29 58 L 07/04/17 07:00 97.9 F 58 L 18 130/61 96 07/04/17 04:00 98.8 F 62 18 130/60 94 L 07/04/17 00:00 97.8 F 60 18 140/66 96 Weight Admit Weight 166 lb 0.128 oz Weight 166 lb 0.128 oz I&O: 07/03/17 07/04/17 07/05/17 06:59 06:59 06:59 Intake Total 1185 1300 Output Total 2350 1200 Balance -1165 100 Result Diagrams: 07/03/17 05:49 07/01/17 05:26 Phys Exam - Physical Examination Constitutional: NAD HEENT: PERRLA, moist MMs, sclera anicteric Respiratory: no wheezing, no rales, no rhonchi, clear to auscultation bilateral Cardiovascular: RRR, no significant murmur, no rub Gastrointestinal: soft, non-tender, no distention, positive bowel sounds Musculoskeletal: no edema, pulses present Neurological: moves all 4 limbs Psychiatric: normal affect, A&O x 3 Dx/Plan (1) NAKUL (acute kidney injury) Code(s): N17.9 - ACUTE KIDNEY FAILURE, UNSPECIFIED Status: Resolved Comment : Improved, avoid nephrotoxic meds, monitor I/O (2) Rectal pain Code(s): K62.89 - OTHER SPECIFIED DISEASES OF ANUS AND RECTUM Status: Resolved Comment: Gabapentin 300mg TID added tramadol 25mg PO prn and norco 1 tab PO prn for additional pain ctrl, continue to monitor (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 Patient -: is able to self straight cath. * . Review of Systems - Medications/Allergies Allergies/Adverse Reactions: Allergies Allergy/AdvReac Type Severity Reaction Status Date / Time No Known Allergies Allergy Verified 06/28/17 23:08 Medications: Current Medications Acetaminophen (Tylenol) 650 mg PO Q6H PRN PRN Reason: Headache/Fever or Pain Last Admin: 07/03/17 12:51 Dose: 650 mg Amlodipine Besylate (Norvasc) 10 mg PO DAILY [facility] Last Admin: 07/04/17 08:29 Dose: 10 mg Benazepril HCl (Lotensin) 20 mg PO DAILY [facility] Last Admin: 07/04/17 08:40 Dose: 20 mg Gabapentin (Neurontin) 300 mg PO TID [facility] Last Admin: 07/04/17 08:30 Dose: 300 mg Heparin Sodium (Porcine) (Heparin) 5,000 units SC TID [facility] Last Admin: 07/04/17 08:31 Dose: 5,000 units Levofloxacin (Levaquin) 250 mg PO 0600 [facility] Last Admin: 07/04/17 05:28 Dose: 250 mg Metoprolol Tartrate (Lopressor) 25 mg PO BID [facility] Last Admin: 07/04/17 08:29 Dose: 25 mg Morphine Sulfate (Morphine) 2 mg SLOW IVP Q4H PRN PRN Reason: Moderate to Severe Pain (6-10) Oxycodone/Acetaminophen (Percocet 5/325) 1 tab PO Q4H PRN PRN Reason: Severe Pain (7-10) Capecitabine [ (Capecitabine] 500 Mg) 0 each PO ASDIR [facility] Sodium Chloride (Flush - Normal Saline) 10 ml IVF Q12HR [facility] Last Admin: 07/03/17 20:29 Dose: Not Given Sodium Chloride (Flush - Normal Saline) 10 ml IVF PRN PRN PRN Reason: Saline Flush Tramadol HCl (Ultram) 25 mg PO Q4H PRN PRN Reason: Moderate Pain (4-6) Last Admin: 07/03/17 14:38 Dose: 25 mg
[2017-07-04] MEDS: traMADol HCl 50 MG TAB PO PRN (13:00)
[2017-07-05] MEDS: Amlodipine 10 MG TAB PO SCH (08:08)
[2017-07-05] MEDS: Gabapentin 300 MG CAP PO SCH ×3 (08:09→20:16)
[2017-07-05] MEDS: Metoprolol Tartrate 25 MG TAB PO SCH ×2 (08:09→20:16)
[2017-07-05] MEDS: Heparin 5,000 UNITS/ML VIAL SC SCH ×3 (08:09→20:17)
[2017-07-06 07:59] VITALS: TEMP 97.5
[2017-07-06] MEDS: Gabapentin 300 MG CAP PO SCH (09:37)
[2017-07-06] MEDS: Metoprolol Tartrate 25 MG TAB PO SCH (09:38)
[2017-07-06] MEDS: Heparin 5,000 UNITS/ML VIAL SC SCH (09:38)
[2017-07-06] MEDS: Amlodipine 10 MG TAB PO SCH (09:39)
[2017-07-06 09:54] VITALS: BP 133/63
--- NOTE | 2017-07-06 13:39 | PDOC.PN ---
- Subjective Encounter Start Date: 07/06/17 Encounter Start Time: 13:37 Subjective: No complaints today. Feels well and looking forward to going home today. - Objective Resuscitation Status: Resuscitation Status DNR:Do Not Resuscitate MAR Reviewed: Yes Vital Signs & Weight: Vital Signs (12 hours) Temp Pulse Resp BP BP Pulse Ox 07/06/17 11:02 97.5 F L 58 L 18 07/06/17 09:39 58 L 07/06/17 09:37 133/63 07/06/17 07:45 97.5 F L 53 L 18 134/63 98 Weight Admit Weight 166 lb 0.128 oz Weight 166 lb 0.128 oz I&O: 07/05/17 07/06/17 07/07/17 06:59 06:59 06:59 Intake Total 1320 975 Output Total 2350 3600 700 Balance -1030 -2625 -700 Result Diagrams: 07/03/17 05:49 07/01/17 05:26 Phys Exam - Physical Examination Constitutional: NAD HEENT: PERRLA, moist MMs, sclera anicteric Neck: full ROM Respiratory: no wheezing, no rales, clear to auscultation bilateral Cardiovascular: RRR, no significant murmur, no rub Gastrointestinal: soft, non-tender, no distention, positive bowel sounds Musculoskeletal: no edema Neurological: non-focal, moves all 4 limbs Psychiatric: normal affect, A&O x 3 Skin: no rash Dx/Plan (1) E. coli UTI (urinary tract infection) Code(s): N39.0 - URINARY TRACT INFECTION, SITE NOT SPECIFIED; B96.20 - UNSP ESCHERICHIA COLI THE CAUSE OF DISEASES CLASSD ELSWHR Status: Suspected Comment: s/p 3 days Rocephin Will be discharged on Levaquin 250mg daily for total 7 day course (complicated UTI) (2) CKD (chronic kidney disease), stage III Code(s): N18.3 - CHRONIC KIDNEY DISEASE, STAGE 3 (MODERATE) Status: Chronic Plan: Back to baseline. 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 Comment: Stable, no evidence of active blood loss, repeat CBC in am hemodynamically stable (4) Rectal adenocarcinoma Code(s): C20 - MALIGNANT NEOPLASM OF RECTUM Status: Chronic Plan: Continue home medications. has not required PRN morphine since admission and had only one dose of PRN tramadol. Will discharge on tramadol. (5) NAKUL (acute kidney injury) Code(s): N17.9 - ACUTE KIDNEY FAILURE, UNSPECIFIED Status: Resolved Comment : back to baseline. - Plan Scheduled for discharge home today. * .
--- NOTE | 2017-07-07 15:45 | DIS ---
DATE OF ADMISSION: 06/28/2017 DATE OF DISCHARGE: 07/06/2017 PRIMARY DISCHARGE DIAGNOSES: 1. Escherichia coli urinary tract infection. 2. Chronic kidney disease. 3. Microcytic anemia. 4. Rectal adenocarcinoma. 5. Acute kidney injury. HISTORY OF PRESENT ILLNESS: An 87-year-old male with a history of rectal cancer diagnosed approximately 3 months ago with also a history of prostate cancer, who presented to the emergency room with rectal pain. He had been receiving outpatient oncologic treatments which he states that typically caused some pain but not to this degree. He states he was on his third week of radiation and chemotherapy. He also reported a fall earlier in the day. He was admitted for rectal pain on Tuesday symptomatically. There was also a concern for UTI which the patient having leukocytosis and left shift on serology. He was started on empiric IV ceftriaxone. He was also given IV fluids for his acute kidney injury. Other medical conditions include hypertension which the patient was resumed on his home regimen. HOSPITAL COURSE: Urine culture was negative. C. diff toxin is not detected by PCR. He was discharged on levofloxacin for a total treatment duration of 7 days. His renal function also continued to improve and the patient was encouraged to hydrate orally. The patient was discharged without incident. DISCHARGE MEDICATIONS: 1. Amlodipine 10 mg p.o. daily. 2. Benazepril 20 mg daily. 3. Capecitabine 500 mg p.o. as directed. 4. Gabapentin 300 mg p.o. t.i.d. 5. Hydrochlorothiazide 25 mg p.o. daily. 6. Levofloxacin 250 mg p.o. daily. 7. Metoprolol tartrate 25 mg p.o. daily. 8. Tramadol 25 mg q.4 hours p.r.n. for pain. LABORATORIES: BUN/creatinine were 33/14.9 at discharge, markedly improved from admission. Hematology shows slight anemia, hemoglobin of 9.4. CONSULTATIONS: Palliative Care. IMAGING: None. CONDITION AT DISCHARGE: Stable and improved. PROCEDURES: None. DIET: Heart-healthy diet with supplements. CARE GOALS: He is to follow up with his oncologist for continued treatment. Also, to follow up with his primary care physician within 1 week of discharge for repeat labs. ACTIVITY: Resume as tolerated. Time of discharge including chart review and documentation, 65 minutes. MTDD
--- NOTE | 2017-07-14 07:43 | DIS ---
DATE OF ADMISSION: 06/28/2017 DATE OF DISCHARGE: 07/05/2017 DISCHARGE DIAGNOSES: 1. Rectal pain, resolved. 2. Acute kidney injury, resolved. 3. Escherichia coli urinary tract infection, actively being treated. 4. Rectal adenocarcinoma, stable. 5. Macrocytic anemia, chronic, stable. BRIEF SUMMARY OF HOSPITAL COURSE: An 87-year-old male with a known history of rectal adenocarcinoma who initially presented with a chief complaint of uncontrolled rectal pain. Please see the original history and physical for full details surrounding admission. During the admission process, he was no jeremie to have acute renal injury, concomitant with his rectal pain. At the time of discharge it was fe lt to be likely secondary to dehydration with a component of urinary tract infection contributing as well. The patient is currently status post 3 days of IV Rocephin, which has been transitioned to ora l Levaquin for a 7-day total course for complicated urinary tract infection. The patient has a longs tanding history of straight catheterization by himself at home and continue this on an outpatient bas is. In terms of the patient's rectal pain. This is currently controlled on oral regimen of tramadol with p.r.n. Leland. The patient's macrocytic anemia has remained stable in regards to hemoglobin, hematocrit and hemodyna mics during this hospitalization. The remainder of the patient's chronic medical issues were stable during this hospitalization. Due t o generalized physical deconditioning from his acute kidney injury, urinary tract infection, and a li brittany component of dehydration on admission the patient was also seen by physical therapy during this hospitalization. A request for inpatient rehabilitation was placed for the patient; however, this wa s denied by his insurance provider. At the time of discharge, the patient is being discharged to critical access hospital. CONSULTATIONS: Oncology. MEDICATION RECONCILIATION: Please see the EMR for full details. The patient will continue on his h ome regimen with the addition of Levaquin to complete a total of 7-day course, tramadol and Leland for pain control as needed. C. diff during this hospitalization has been antigen positive, but PCR negative. Patient has not bee n on treatment for C. diff. LABORATORY: Most recent laboratory values for the patient on 07/03/2017; WBC 5.5, hemoglobin 9.4, he matocrit 28.7, platelets 290. On 07/01/2017, the patient's BMP indicated sodium 137, potassium 3.6, chloride 110, bicarbonate 19, BUN 33, creatinine 1.49, calcium 8.2. PHYSICAL EXAMINATION: 07/05/2017 VITAL SIGNS: Temperature of 98.3, heart rate 58, respirations 16, satting 93% on room air, blood pre ssure 143/64. GENERAL: The patient is awake, alert, conversant, in no acute distress, lying in the hospital bed. HEENT: Moist mucous membranes. Equal ocular motions are intact. Normocephalic, atraumatic. CARDIOVASCULAR: S1, S2. Pulses 2+ bilateral upper extremities, no pitting pedal edema. RESPIRATORY : Reasonable air movement. Clear to auscultation. No wheezes, rales or rhonchi. ABDOMEN: Positive bowel sounds, soft. Nontender to palpation. MUSCULOSKELETAL: Moving all 4 extremities independently. DISCHARGE INSTRUCTIONS: The patient is asked to follow up closely with his outpatient team including his primary care provider and his oncologist. During this hospitalization, the patient's advance ca re planning was also discussed. At the time of discharge, the patient states that he wishes to "go h ome and ". Specifically, he understands the guarded prognosis of his underlying oncologic diseas e and wishes to have hospice on board and be pain free. Thank you for asking me to care for your patient.
== END 2017-07-06 10:58 | disposition home or self-care (01) | DRG 699 ==
LOC: ERS 18:43 → ONC 21:10
PROVIDERS: ADMIT Internal Medicine; ATTEND Internal Medicine
DX: T83.511A Infection and inflammatory reaction due to indwelling urethral catheter, initial encounter (principal); C20 Malignant neoplasm of rectum; N17.9 Acute kidney failure, unspecified; C79.72 Secondary malignant neoplasm of left adrenal gland; C79.71 Secondary malignant neoplasm of right adrenal gland; E86.0 Dehydration; D53.9 Nutritional anemia, unspecified; B96.20 Unspecified Escherichia coli [E. coli] as the cause of diseases classified elsewhere; N18.3 Chronic kidney disease, stage 3 (moderate); I12.9 Hypertensive chronic kidney disease with stage 1 through stage 4 chronic kidney disease, or unspecified chronic kidney disease; Z95.1 Presence of aortocoronary bypass graft; N39.0 Urinary tract infection, site not specified; Y84.6 Urinary catheterization as the cause of abnormal reaction of the patient, or of later complication, without mention of misadventure at the time of the procedure; Z85.46 Personal history of malignant neoplasm of prostate; Z86.73 Personal history of transient ischemic attack (TIA), and cerebral infarction without residual deficits; Z66 Do not resuscitate
CPT/HCPCS: 36415; 77336; 77412; 80048; 80053; 80069; 82248; 83615; 84100; 84550; 85007; 85025; 85027; 87086; 87324; 87449; 87493; 99285; A4216; A4353; G8978-GP-CL; G8979-GP-CJ; G8987-GO-CJ; G8988-GO-CI; J0696; J1644